=== PATIENT | female | born 1995 | race Caucasian/White ===

== ENCOUNTER 2019-03-08 07:11 | Outpatient (CLI) | payer BC ==
--- NOTE | 2019-03-08 08:30 | MRI ---
Exam: MRI cervical spine without contrast HISTORY: Radiculopathy. Neck pain. Left arm and rib numbness. COMPARISON: None FINDINGS: Appropriate T1 marrow signal intensity of the cervical vertebra. Cervical spine vertebral body heigh t is maintained. No fracture. No significant STIR hyperintensity to suggest vertebral body edema or ligamentous injury. Visualized brain parenchyma, cervicomedullary junction, cervical cord and the upp er thoracic cord have a normal size and signal intensity. C2-C3: No significant central canal stenosis. Neural foramina are patent. C3-C4: No significant central canal stenosis. Neural foramina are patent. C4-C5: No significant central canal stenosis. Neural foramina are patent. C5-C6: No significant central canal stenosis. Neural foramina are patent C6-C7: No significant central canal stenosis. Neural foramina are patent. C7-T1: No significant central canal stenosis. Neural foramina are patent. IMPRESSION: No significant central canal stenosis or neural foraminal stenosis.
== END 2019-03-08 07:12 | disposition home or self-care (01) ==
LOC: SCSMRI 07:11
PROVIDERS: ATTEND Family Medicine
DX: M54.12 Radiculopathy, cervical region (principal)
CPT/HCPCS: 72141

== ENCOUNTER 2019-07-01 09:25 | Outpatient (CLI) | payer BC ==
--- NOTE | 2019-07-01 09:41 | RAD ---
Cervical spine 3 views: 07/01/2019 COMPARISON: None HISTORY: Left-sided neck pain with left upper extremity radiculopathy FINDINGS: No fracture or dislocation. Cervical vertebral body height and alignment is within normal l imits. No prevertebral soft tissue swelling. Open-mouth odontoid view demonstrates a normal-appearing dens and C1-2 articulation. IMPRESSION: No acute findings.
== END 2019-07-01 09:26 | disposition home or self-care (01) ==
LOC: SCSRAD 09:25
PROVIDERS: ATTEND Psychiatry & Neurology Neurology
DX: M54.12 Radiculopathy, cervical region (principal)
CPT/HCPCS: 72040